=== PATIENT | male | born 1945 | race Hispanic/Latino ===

== ENCOUNTER 2018-08-29 05:48 | Day surgery (SDC) | payer OTHER, MEDICARE ==
[2018-08-29 06:58] LABS: Basophils % (Auto) 0.3 % (0.0-1.8); Eosinophils % (Auto) 0.4 % (0.0-4.3); Hematocrit 29.3 % (35.5-45.6); Hemoglobin 10.2 gm/dl (11.8-15.2); Lymphocytes # (Auto) 1.3 K/mm3 (1.2-5.4); Lymphocytes % (Auto) 40.6 % (13.4-35.0); Mean Corpuscular HGB Conc 35 % (32-34); Mean Corpuscular Volume 109 fl (84-94); Monocytes # (Auto) 0.4 K/mm3 (0.0-0.8); Monocytes % (Auto) 11.4 % (0.0-7.3)
[2018-08-29 06:59] LABS: Platelet Count 83 K/mm3 (140-440)
[2018-08-29] MEDS: NACL 0.9% 500 ML 500 ML IV SCH ×2 (06:59→08:30)
[2018-08-29 07:13] LABS: INR 0.94 (0.87-1.13)
[2018-08-29 07:21] LABS: BUN/Creatinine Ratio 25; Blood Urea Nitrogen 20 mg/dL (9-20); Calcium 9.2 mg/dL (8.4-10.2); Hemolysis Index 1
[2018-08-29] MEDS ORDERED: HEPARIN/NS 5000 UNIT/500ML(CATH LAB) 1,000 ML IR ONE (08:34)
[2018-08-29] MEDS ORDERED: VERSED ONE (08:34)
[2018-08-29] MEDS ORDERED: HEPARIN 10,000 UNITS/10 ML ONE (08:34)
[2018-08-29] MEDS ORDERED: SUBLIMAZE ONE (08:35)
[2018-08-29] MEDS ORDERED: NITROGLYCERIN SYRINGE 0 ML ONE (08:35)
[2018-08-29] MEDS: XYLOCAINE 2% INFILTRATI ONE ×2 (08:41→08:46)
[2018-08-29] MEDS: CALAN ONE ×2 (08:46→08:53)
--- NOTE | 2018-08-29 11:31 | Short Stay Summary ---
Short Stay Documentation Date of service: 08/29/18 - History H&P: obtained from office - Allergies and Medications Current Medications: Allergies No Known Allergies Allergy (Verified 08/29/18 11:27) Home Medications Medication Instructions Recorded Confirmed Last Taken Type Aspirin [Lo-Dose Aspirin EC] 81 mg PO DAILY 08/29/18 08/29/18 08/29/18 History 0639 Atenolol 50 mg PO DAILY 08/29/18 08/29/18 08/28/18 History Atorvastatin Calcium 80 mg PO DAILY 08/29/18 08/29/18 08/28/18 History Ramipril 5 mg PO DAILY 08/29/18 08/29/18 08/28/18 History Active Medications Sodium Chloride (Nacl 0.9% 500 Ml) 500 mls @ 50 mls/hr IV DIRECT GREGORIA Stop: 08/29/18 16:59 Last Admin: 08/29/18 08:30 Dose: 50 mls/hr Documented by: - Brief post op/procedure progress note Date of procedure: 08/29/18 Pre-op diagnosis: CAD Post-op diagnosis: same Procedure: [facility] - see dictated cath report Anesthesia: local Estimated blood loss: none Condition: stable - Disposition Condition at discharge: Good Disposition: DC-01 TO HOME OR SELFCARE - Discharge Diagnoses (1) CAD (coronary artery disease) Status: Chronic (2) Stented coronary artery Status: Chronic (3) Chest pain Status: Chronic Short Stay Discharge Plan Activity: advance as tolerated Diet: low fat, low cholesterol, low salt Wound: open to air, keep clean and dry, per your surgeon's advice Follow up with: PETTY ALVAREZ MD [Other] - 7 Days ALY GARCIA MD [Staff Physician] - 7 Days Forms: CardCath PCI D/C Instructions
[2018-08-29 11:53] VITALS: BP 106/52
--- NOTE | 2018-08-29 12:02 | Cardiac Catherization Report ---
CARDIAC CATHETERIZATION INDICATIONS FOR PROCEDURE: A 72-year-old gentleman with history of hypertension, known coronary artery disease, intervention of the RCA in 11/2005. As a part of the DOT, he has a stress nuclear imaging performed, which showed evidence of ischemia in the anteroapical and inferoapical area, which is new from 2016. The patient is not having any symptoms of chest pain or shortness of breath at this time. Because of for further evaluation of his abnormal nuclear imaging, he is scheduled for cardiac catheterization prior to his DOT physical clearance. DESCRIPTION OF PROCEDURE: The patient was brought to the catheterization laboratory in a fasting condition. The right wrist area and forearm were thoroughly cleansed with Betadine solution. The patient was evaluated for moderate sedation and was found to be appropriate candidate for moderate sedation, received IV Versed and fentanyl. Subsequently, sterile drapes were applied. Right wrist area was thoroughly cleansed with Betadine solution. Sterile drapes were applied. Local anesthesia was achieved using 2% Xylocaine. Right radial artery access was obtained using 21-gauge arterial puncture needle. Subsequently, a 5-Israeli sheath was inserted. The patient received 5 mg of intra-arterial verapamil and 3000 units of intravenous heparin. Subsequently, using 5-Israeli multipurpose catheter, angiograms of the right coronary artery were obtained in multiple views followed by using JL3.5 catheter for obtaining the angiograms of the left coronary artery and JR4 catheter was used to enter the left ventricle and left ventriculogram was performed using hand injection using the JR4 catheter. At the end of the procedure, catheter was removed over guidewire and sheath was removed and radial band was applied with good hemostasis. No untoward complications were noted. It is to be noted the patient received IV Versed and fentanyl and was monitored throughout the procedure hemodynamically with a pulse oximetry and also with EKG monitoring. The patient was started sedation at 8:34 a.m. and ended at 9:03 a.m. The patient, at the end of the procedure, was communicative, moving all the extremities and eating normally. No untoward complications were noted. Following findings were noted: HEMODYNAMICS: 1. Opening aortic pressure is 112/47, left ventricular pressure 133/26. No gradient across the aortic valve. Estimated ejection fraction was 55%. 2. Left ventriculogram was done in DAVID position shows normal sized left ventricle with normal contractility. End-diastolic and systolic volumes were normal; however, mitral regurgitation could not be evaluated because of limited amount of dye injected. 3. Right coronary artery, large, dominant vessel arises normally from right coronary cusp. Diffuse calcifications noted and there is a widely patent mid RCA stent. There is a diffuse disease throughout in the range of 10-30% throughout the vessel. 4. Left coronary artery arises normally from left coronary cusp. There are diffuse calcifications noted in the area of left main, LAD and circumflex. ____ Left main shows mild 10% lesions. LAD shows diffuse calcifications with 50% smooth lesion in the distal part just at the bifurcation of the anterior diagonal branch. This lesion is very smooth, 40-50%, and this is to be noted distal LAD is very tortuous and small caliber vessel. Otherwise, rest of the LAD shows only mild irregularities. Circumflex artery similarly shows 10-30% smooth lesions diffusely represented by a fairly large marginal branch. 5. Collaterals none. FINAL IMPRESSION: 1. Normal sized left ventricle with normal contractility. 2. Diffuse calcifications noted in the coronary system. 3. Widely patent mid right coronary artery noted. Rest of the right coronary artery and the left coronary artery shows only mild to moderate disease with no obstructive lesions. However, the patient has diffuse calcifications along mild to moderate diffuse disease. With the above angiographic pictures and normal LV function, the patient will be continued on aggressive risk factor modification and medical therapy. Findings were explained to the patient. The patient was transferred to the room in stable condition. Good hemostasis was achieved with manual pressure. No untoward complications were noted from moderate sedation. [facility]# [id number] ANNALISE/ZARA JOHNS
== END 2018-08-29 12:30 | disposition home or self-care (01) ==
LOC: CATHLABREC 05:48
PROVIDERS: ATTEND Internal Medicine
DX: I25.10 Atherosclerotic heart disease of native coronary artery without angina pectoris (principal); I10 Essential (primary) hypertension; E78.49 Other hyperlipidemia; F17.210 Nicotine dependence, cigarettes, uncomplicated; E78.00 Pure hypercholesterolemia, unspecified; K21.9 Gastro-esophageal reflux disease without esophagitis; M19.90 Unspecified osteoarthritis, unspecified site; Z86.2 Personal history of diseases of the blood and blood-forming organs and certain disorders involving the immune mechanism; Z98.890 Other specified postprocedural states; Z80.3 Family history of malignant neoplasm of breast; Z79.82 Long term (current) use of aspirin; Z98.61 Coronary angioplasty status; Z79.899 Other long term (current) drug therapy; Z90.49 Acquired absence of other specified parts of digestive tract; Z79.01 Long term (current) use of anticoagulants
CPT/HCPCS: 36415; 80048; 85025; 85610; 85730; 93005; 93010; 93458; 99156; 99157; C1894; J1644; J2250; J3010; J7040; Q9967

== ENCOUNTER 2019-07-29 02:05 | Emergency (ER) | payer OTHER, MEDICARE ==
[2019-07-29 02:20] VITALS: BP 102/37
--- NOTE | 2019-07-29 03:13 | XRay Report ---
CHEST 1 VIEW INDICATION: Chest Pain. COMPARISON: none FINDINGS: SUPPORT DEVICES: None. HEART / MEDIASTINUM: No significant abnormality. LUNGS / PLEURA: No significant pulmonary or pleural abnormality. No pneumothorax. ADDITIONAL FINDINGS: IMPRESSION: 1. No acute findings. Signer Name: Mike Moreno MD Signed: 07/29/2019 3:09 AM Workstation Name: [id number]
[2019-07-29 03:52] LABS: Hematocrit 23.1 % (35.5-45.6); Mean Corpuscular HGB Conc 35 % (32-34); Mean Corpuscular Volume 113 fl (84-94); Platelet Count 61 K/mm3 (140-440); Red Blood Count 2.04 M/mm3 (3.65-5.03)
[2019-07-29 04:15] LABS: BUN/Creatinine Ratio 15; Blood Urea Nitrogen 17 mg/dL (9-20); Calcium 9.6 mg/dL (8.4-10.2); Hemolysis Index 7
[2019-07-29 06:09] LABS: Band Neutrophils # (Manual) 1.3 K/mm3; Basophils % (Manual) 0 % (0.0-1.8); Eosinophils % (Manual) 0 % (0.0-4.3); Myelocytes # (Manual) 1.4 K/mm3; Total Cells Counted 100
[2019-07-29 06:10] LABS: Anisocytosis 1+; Macrocytosis 1+; Platelet Estimate Consistent w Auto
== END 2019-07-29 04:33 | disposition left against medical advice (07) ==
LOC: ED 02:05
DX: R42 Dizziness and giddiness (principal); Z53.21 Procedure and treatment not carried out due to patient leaving prior to being seen by health care provider
CPT/HCPCS: 36415; 71045; 80048; 84484; 85007; 85025; 93005; 93010

== ENCOUNTER 2019-07-29 10:35 | Observation (INO) | payer OTHER, MEDICARE ==
[2019-07-29] MEDS ORDERED: SODIUM CHLORIDE 0.9% 1000 ML 1,000 ML IV ONE (14:55)
[2019-07-29 15:52] LABS: Hematocrit 21.8 % (35.5-45.6); Hemoglobin 7.5 gm/dl (11.8-15.2); Mean Corpuscular HGB Conc 34 % (32-34); Red Blood Count 1.93 M/mm3 (3.65-5.03)
[2019-07-29 15:54] LABS: Mean Corpuscular Volume 113 fl (84-94); Platelet Count 58 K/mm3 (140-440)
[2019-07-29 16:05] LABS: Alanine Aminotransferase 8 units/L (7-56); Albumin 4.1 g/dL (3.9-5); BUN/Creatinine Ratio 18; Blood Urea Nitrogen 20 mg/dL (9-20); Calcium 9.3 mg/dL (8.4-10.2); Hemolysis Index 38
[2019-07-29 16:08] LABS: Bilirubin,Urine NEG (Negative); Blood,Urine NEG (Negative); Color,Urine Yellow (Yellow); Hyaline Casts,Urine 4 /LPF; Mucus,Urine FEW /HPF; Protein,Urine <15 mg/dL mg/dL (Negative); Urobilinogen,Urine < 2.0 mg/dL (<2.0); WBC,Urine < 1.0 /HPF (0.0-6.0)
[2019-07-29 16:14] LABS: Amphetamine Screen,Urine PRESUMPTIVE NEGATIVE; Benzodiazepines Screen,Urine PRESUMPTIVE NEGATIVE; Cannabinoid Screen,Urine PRESUMPTIVE NEGATIVE; Cocaine Screen,Urine PRESUMPTIVE NEGATIVE; Methadone Screen,Urine PRESUMPTIVE NEGATIVE; Opiate Screen,Urine PRESUMPTIVE NEGATIVE
[2019-07-29 16:15] LABS: Bilirubin,Direct < 0.2 mg/dL (0-0.2)
[2019-07-29 16:20] LABS: INR 1.06 (0.87-1.13)
[2019-07-29 16:21] LABS: Partial Thromboplastin Time 38.5 Sec. (24.2-36.6)
--- NOTE | 2019-07-29 16:43 | Emergency Department Report ---
ED General Adult HPI - General Chief complaint: Medical Clearance Stated complaint: CANNOT SLEEP Time Seen by Provider: 07/29/19 14:17 Source: patient Mode of arrival: Ambulatory Limitations: No Limitations - History of Present Illness Initial comments: 73-year-old male with history of CAD status post stents, hypertension presents to the ED with complaint of insomnia. Patient states he is unable to sleep. Patient was seen last night and eloped. Patient denies any sort of pain or discomfort. Patient states the last time this happened and he was diagnosed with an heart attack and stent placed. Patient currently denies any chest pain or shortness of breath. PCP: none [employer]: Mario -: days(s) (2) Consistency: constant Improves with: none Worsens with: none Associated Symptoms: denies other symptoms. denies: chest pain, cough, fever/chills, headaches, nausea/vomiting, shortness of breath Treatments Prior to Arrival: none - Related Data Home Medications Medication Instructions Recorded Confirmed Last Taken Aspirin [Lo-Dose Aspirin EC] 81 mg PO DAILY 08/29/18 08/29/18 08/29/18 0639 Atorvastatin Calcium 80 mg PO DAILY 08/29/18 08/29/18 08/28/18 Ramipril 5 mg PO DAILY 08/29/18 08/29/18 08/28/18 atenoloL [Atenolol] 50 mg PO DAILY 08/29/18 08/29/18 08/28/18 Allergies Allergy/AdvReac Type Severity Reaction Status Date / Time No Known Allergies Allergy Verified 08/29/18 11:27 ED Review of Systems ROS: Stated complaint: CANNOT SLEEP Other details as noted in HPI Comment: All other systems reviewed and negative Constitutional: denies: chills, fever Respiratory: denies: cough, shortness of breath Cardiovascular: denies: chest pain Gastrointestinal: denies: abdominal pain, vomiting, melena, hematochezia Neurological: denies: headache ED Past Medical Hx - Past Medical History Previous Medical History?: Yes Hx Hypertension: Yes Hx Heart Attack/AMI: No Hx GERD: Yes Hx Arthritis: Yes Hx HIV: No Additional medical history: CAD, high chol - Surgical History Past Surgical History?: Yes Hx Coronary Stent: Yes (1 cardiac stent 2005 in [facility]) Hx Appendectomy: Yes Additional Surgical History: knee surgery, nose surgery - Social History Smoking Status: Current Every Day Smoker Substance Use Type: None - Medications Home Medications: Home Medications Medication Instructions Recorded Confirmed Last Taken Type Aspirin [Lo-Dose Aspirin EC] 81 mg PO DAILY 08/29/18 08/29/18 08/29/18 History 0639 Atorvastatin Calcium 80 mg PO DAILY 08/29/18 08/29/18 08/28/18 History Ramipril 5 mg PO DAILY 08/29/18 08/29/18 08/28/18 History atenoloL [Atenolol] 50 mg PO DAILY 08/29/18 08/29/18 08/28/18 History ED Physical Exam - General Limitations: No Limitations General appearance: alert, in no apparent distress - Head Head exam: Present: atraumatic, normocephalic - Eye Eye exam: Present: normal appearance - ENT ENT exam: Present: mucous membranes moist - Neck Neck exam: Present: normal inspection - Respiratory Respiratory exam: Present: normal lung sounds bilaterally. Absent: respiratory distress - Cardiovascular Cardiovascular Exam: Present: regular rate, normal rhythm - GI/Abdominal GI/Abdominal exam: Present: soft. Absent: distended, tenderness - Rectal Rectal exam: Present: normal inspection, heme (-) stool - Extremities Exam Extremities exam: Present: normal inspection - Neurological Exam Neurological exam: Present: alert, oriented X3 - Psychiatric Psychiatric exam: Present: normal affect, normal mood - Skin Skin exam: Present: warm, dry, intact, normal color ED Course Vital Signs 07/29/19 07/29/19 07/29/19 10:47 14:30 17:13 Temperature 96.9 F L 97.9 F 98 F Pulse Rate 72 58 L 64 Respiratory 16 16 16 Rate Blood Pressure 92/46 112/60 114/56 [Right] O2 Sat by Pulse 100 98 100 Oximetry 07/29/19 18:26 Temperature 98 F Pulse Rate 66 Respiratory 18 Rate Blood Pressure 106/56 [Right] O2 Sat by Pulse 100 Oximetry ED Medical Decision Making - Lab Data Result diagrams: 07/29/19 15:22 07/29/19 15:18 - EKG Data -: EKG Interpreted by Or EKG shows normal: sinus rhythm, axis, intervals, QRS complexes, ST-T waves Rate: normal - EKG Data Interpretation: no acute changes - Radiology Data Radiology results: report reviewed, image reviewed - Medical Decision Making 73-year-old male presents to ED with complaint of insomnia. He reports the last time he experienced this, he was having a heart attack and underwent stent placement. Patient denies any pain, has no other complaints. HEENT troponin are normal. Chest x-ray done earlier this morning is normal as well. Labs reveal the patient is anemic and thrombocytopenic, with low sodium. Patient denies any history of anemia or thrombocytopenia. Denies alcohol abuse. Rectal exam was performed on patient by myself, as his stool guaiac is negative. Spoke with hospitalist, Dr. Garcia. Will admit for anemia, throbocytopenia, hyponatremia. - Differential Diagnosis infection, ACS, intoxication Critical care attestation.: If time is entered above; I have spent that time in minutes in the direct care of this critically ill patient, excluding procedure time. ED Disposition Clinical Impression: Hyponatremia, Anemia, Thrombocytopenia Disposition: OP ADMIT IP TO THIS HOSP Is pt being admited?: Yes Condition: Stable Time of Disposition: 16:43
[2019-07-29 17:00] LABS: Myelocytes # (Manual) 0.7 K/mm3; Total Cells Counted 100
[2019-07-29 17:01] LABS: Basophils % (Manual) 0 % (0.0-1.8); Platelet Estimate Appears Decreased
[2019-07-29 17:02] LABS: Anisocytosis 2+; Macrocytosis 1+
[2019-07-29] MEDS ORDERED: ACETAMINOPHEN 325 MG TAB PO PRN (23:31)
[2019-07-29] MEDS ORDERED: oxyCODONE /ACETAMINOPHEN 5-325MG TAB PO PRN (23:31)
[2019-07-29] MEDS ORDERED: METOCLOPRAMIDE 10 MG/2 ML INJ IV PRN (23:31)
[2019-07-29] MEDS ORDERED: ONDANSETRON 4 MG/2 ML INJ IV PRN (23:31)
[2019-07-29] MEDS ORDERED: HYDROmorphone 1 MG/1 ML INJ IV PRN (23:31)
[2019-07-29] MEDS ORDERED: SODIUM CHLORIDE 0.9% 500 ML 500 ML IV ONE (23:41)
[2019-07-29] MEDS ORDERED: FAMOTIDINE 20 MG/2 ML INJ IV SCH (23:45)
[2019-07-29] MEDS ORDERED: SODIUM CHLORIDE 0.9% 1000 ML 1,000 ML IV SCH (23:45)
--- NOTE | 2019-07-29 23:50 | Event Note ---
Date: 07/29/19 See history and physical in the reports Symptomatic anemia Hyponatremia Admitted in observation status
[2019-07-30 02:11] LABS: Iron 143 ug/dL (49-181); Total Iron Binding Capacity 207 mcg/dL (250-450)
[2019-07-30 02:12] LABS: % Iron Saturation 67.59 %
[2019-07-30 09:34] VITALS: BP 115/52
[2019-07-30] MEDS ORDERED: ASPIRIN EC 81 MG TAB PO SCH (10:00)
[2019-07-30] MEDS ORDERED: RAMIPRIL 5 MG PO SCH (10:00)
[2019-07-30] MEDS ORDERED: ATORVASTATIN CALCIUM 80 MG PO SCH (10:00)
[2019-07-30] MEDS ORDERED: FAMOTIDINE 20 MG TAB PO SCH (10:00)
[2019-07-30] MEDS ORDERED: atenoloL 50 MG TAB PO SCH (10:00)
[2019-07-30] MEDS ORDERED: LISINOPRIL 10 MG TAB PO SCH (10:00)
[2019-07-30 12:19] LABS: Hematocrit 24.2 % (35.5-45.6); Hemoglobin 8.2 gm/dl (11.8-15.2); Mean Corpuscular HGB Conc 34 % (32-34); Mean Corpuscular Volume 106 fl (84-94); Red Blood Count 2.29 M/mm3 (3.65-5.03)
[2019-07-30 12:20] LABS: Platelet Count 50 K/mm3 (140-440); Red Cell Distribution Width 24.5 % (13.2-15.2)
[2019-07-30 12:41] LABS: Alanine Aminotransferase 6 units/L (7-56); Albumin 3.7 g/dL (3.9-5); BUN/Creatinine Ratio 14; Blood Urea Nitrogen 15 mg/dL (9-20); Calcium 8.7 mg/dL (8.4-10.2); Hemolysis Index 5
--- NOTE | 2019-07-30 12:56 | Progress Note ---
Subjective Date of service: 07/30/19 Objective - Constitutional Vitals: Vital Signs - 12hr 07/30/19 07/30/19 07/30/19 02:45 04:11 04:26 Temperature 98.1 F 97.8 F 97.8 F Pulse Rate 57 L 58 L 65 Respiratory 20 18 18 Rate Blood Pressure 104/48 96/41 86/46 Blood Pressure [Right] O2 Sat by Pulse 99 97 99 Oximetry 07/30/19 07/30/19 07/30/19 04:56 05:26 05:56 Temperature 97.8 F 97.7 F 97.5 F L Pulse Rate 56 L 62 59 L Respiratory 18 18 18 Rate Blood Pressure 94/43 99/57 89/59 Blood Pressure [Right] O2 Sat by Pulse 99 97 100 Oximetry 07/30/19 07/30/19 07/30/19 06:26 06:56 07:57 Temperature 97.5 F L 97.7 F Pulse Rate 61 53 L 73 Respiratory 18 18 18 Rate Blood Pressure 99/54 89/41 102/58 Blood Pressure [Right] O2 Sat by Pulse 100 98 95 Oximetry 07/30/19 07/30/19 07/30/19 08:00 08:13 09:33 Temperature 97.5 F L Pulse Rate 74 58 L 44 L Respiratory 18 18 Rate Blood Pressure 112/64 115/52 Blood Pressure 102/58 [Right] O2 Sat by Pulse 99 Oximetry - Labs CBC & Chem 7: 07/30/19 11:58 07/30/19 11:58 Labs: Abnormal lab results 07/29/19 07/29/19 07/29/19 Range/Units 15:18 15:21 15:22 WBC 11.9 H (4.5-11.0) K/mm3 RBC 1.93 L (3.65-5.03) M/mm3 Hgb 7.5 L (11.8-15.2) gm/dl Hct 21.8 L (35.5-45.6) % MCV 113 H (84-94) fl MCH 39 H (28-32) pg RDW 19.0 H (13.2-15.2) % Plt Count 58 L (140-440) K/mm3 APTT 38.5 H (24.2-36.6) Sec. Sodium 129 L (137-145) mmol/L Chloride 94.9 L (98-107) mmol/L Carbon Dioxide 18 L (22-30) mmol/L TIBC (250-450) mcg/dL ALT (7-56) units/L Albumin (3.9-5) g/dL Crossmatch 07/30/19 07/30/19 07/30/19 Range/Units 00:04 00:04 00:12 WBC (4.5-11.0) K/mm3 RBC (3.65-5.03) M/mm3 Hgb (11.8-15.2) gm/dl Hct (35.5-45.6) % MCV (84-94) fl MCH (28-32) pg RDW (13.2-15.2) % Plt Count (140-440) K/mm3 APTT (24.2-36.6) Sec. Sodium (137-145) mmol/L Chloride (98-107) mmol/L Carbon Dioxide (22-30) mmol/L TIBC 216 L 207 L (250-450) mcg/dL ALT (7-56) units/L Albumin (3.9-5) g/dL Crossmatch See Detail 07/30/19 07/30/19 Range/Units 11:58 11:58 WBC 13.1 H (4.5-11.0) K/mm3 RBC 2.29 L (3.65-5.03) M/mm3 Hgb 8.2 L (11.8-15.2) gm/dl Hct 24.2 L (35.5-45.6) % MCV 106 H (84-94) fl MCH 36 H (28-32) pg RDW 24.5 H (13.2-15.2) % Plt Count 50 L (140-440) K/mm3 APTT (24.2-36.6) Sec. Sodium 131 L (137-145) mmol/L Chloride 97.6 L (98-107) mmol/L Carbon Dioxide 19 L (22-30) mmol/L TIBC (250-450) mcg/dL ALT 6 L (7-56) units/L Albumin 3.7 L (3.9-5) g/dL Crossmatch
[2019-07-30] MEDS ORDERED: NICOTINE 14 MG/24 HR PATCH TD SCH (13:00)
--- NOTE | 2019-07-30 13:05 | History and Physical Report ---
CHIEF COMPLAINT: 1. Generalized weakness. 2. Unable to sleep. 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 The patient is not taking care of him, following up with a physician because of him living in the truck. Comes in for generalized weakness and difficulty sleeping. The patient attributes his lack of sleep or unable to sleep to coronary artery disease. Denies any chest pain or shortness of breath. General weakness present. Shortness of breath on exertion present. PAST MEDICAL HISTORY: Significant for coronary artery disease, hypertension. Arthritis, hyperlipidemia. PAST SURGICAL HISTORY: Cardiac stent in 2005. Appendectomy, knee surgery and neurosurgery, rhinoplasty. SOCIAL HISTORY: Smokes about a pack a day to 3 packs a day. FAMILY HISTORY: Hypertension. CURRENT MEDICATIONS: Atorvastatin 80 mg once a day, ramipril 5 mg once a day, atenolol 50 mg once a day, aspirin 81 mg once a day. REVIEW OF SYSTEMS: Significant for generalized weakness and difficulty sleeping and shortness of breath on exertion. Otherwise, review of systems negative. A 14-point review of systems done. PHYSICAL EXAMINATION: GENERAL: Elderly male, cooperative during examination. VITAL SIGNS: Blood pressure is 89/41 which has improved to 112/64. Initial blood pressure was 92/46, temperature 96.9, pulse is 72, respiratory rate is 16. HEENT: Pale mucous membranes and pale conjunctivae. NECK: Supple, no lymphadenopathy, no thyromegaly. LUNGS: Clear to auscultation and percussion. Good air entry. CARDIOVASCULAR: S1, S2 heard. No gallop, no murmur, no rub. Apical impulse in left fifth intercostal space and midclavicular line. ABDOMEN: Soft and benign. No hepatosplenomegaly. No guarding, no rigidity. Hernial orifices are normal. EXTREMITIES: Good pedal pulses. No pedal edema. CENTRAL NERVOUS SYSTEM: Alert and oriented x 4, nonfocal exam. LABORATORY DATA: White count is 11,900, H and H is 7.5 and 31.8, platelet count is 58,000. Sodium is 129, BUN and creatinine is 20 and 1.1, liver function tests are normal. Urine normal. Drug screen negative. EKG shows normal sinus rhythm, heart rate of 60 per minute. No chest x-ray was done. ASSESSMENT AND PLAN: 1. Symptomatic anemia. The patient to be transfused 1 unit of blood. Anemia workup to be done. 2. Hyponatremia. IV normal saline for now. The patient is not on any hydrochlorothiazide. 3. Hyperlipidemia. Continue statins. We will decrease the statins to 40 mg because of the potential for myopathy. 4. Hypertension. Continue atenolol and ramipril. 5. Nicotine dependence. Continue Nicoderm patch. 6. Deep venous thrombosis prophylaxis, heparin 5000 q. 12. JOB# [id number] VSM/NTS
--- NOTE | 2019-07-30 14:02 | Discharge Summary ---
Providers - Providers Date of Admission: 07/29/19 16:44 Date of discharge: 07/30/19 Attending physician: DEBORAH SCOTT 07/30/19 08:42 Physical Therapy Evaluation and Treat [CONS] Routine Comment: Reason For Exam: weakness Primary care physician: DIRECTOR ON [employer] Hospitalization Condition: Stable Hospital course: Patient admitted for Anemia Debility and Hyponatremia Was given IV fluids and one unit of PRBC Patient has low Iron levels Also unsteady walking sec to Myopathy and Statins.Statins stopped. Discharge diagnosis Symptomatic Anemia Hyponatremia Myopathy sec to Statins. Stop Statins Ferrous sulfate 325 mg po qday F/u with pcp in one week Wants to sign AMA and go home at any cost. Counselled about dangers of early discharge. Has to stop driving. Disposition: DC- TO HOME OR SELFCARE Core Measure Documentation - Palliative Care Palliative Care/ Comfort Measures: Not Applicable - Core Measures Any of the following diagnoses?: none Exam - Constitutional Vitals: Temp Pulse Resp BP Pulse Ox 97.5 F L 44 L 18 115/52 99 07/30/19 08:00 07/30/19 09:33 07/30/19 08:13 07/30/19 09:33 07/30/19 08:13 General appearance: Present: no acute distress, well-nourished - EENT Eyes: Present: PERRL ENT: hearing intact, clear oral mucosa - Neck Neck: Present: supple, normal ROM - Respiratory Respiratory effort: normal Respiratory: bilateral: CTA - Cardiovascular Heart rate: 78 Rhythm: regular Heart Sounds: Present: S1 & S2. Absent: rub, click - Extremities Extremities: no ischemia, pulses intact, pulses symmetrical, No edema Peripheral Pulses: within normal limits - Abdominal General gastrointestinal: Present: soft, non-tender, non-distended, normal bowel sounds Male genitourinary: Present: normal - Integumentary Integumentary: Present: clear, warm, dry - Musculoskeletal Musculoskeletal: generalized weakness - Psychiatric Psychiatric: appropriate mood/affect, intact judgment & insight - Neurologic Neurologic: CNII-XII intact, moves all extremities - Allied Health Allied health notes reviewed: nursing, case management Plan Activity: no restrictions Weight Bearing Status: Weight Bear as Tolerated Diet: regular Follow up with: ILEANA GREENE MD [Primary Care Provider] - 3-5 Days ALLY ESCAMILLA MD [Staff Physician] - 7 Days
[2019-07-30 14:37] LABS: Anisocytosis 2+; Band Neutrophils # (Manual) 1.4 K/mm3; Basophils % (Manual) 0 % (0.0-1.8); Eosinophils % (Manual) 0 % (0.0-4.3); Myelocytes # (Manual) 1.2 K/mm3; Platelet Estimate Consistent w Auto; Total Cells Counted 100
== END 2019-07-30 14:25 | disposition home or self-care (01) ==
LOC: ED 10:35 → 2B-ACE 16:44
PROVIDERS: ADMIT Internal Medicine; ATTEND Internal Medicine
DX: D64.9 Anemia, unspecified (principal); D69.6 Thrombocytopenia, unspecified; E87.1 Hypo-osmolality and hyponatremia; E78.5 Hyperlipidemia, unspecified; F17.200 Nicotine dependence, unspecified, uncomplicated; I10 Essential (primary) hypertension; R53.1 Weakness; I25.10 Atherosclerotic heart disease of native coronary artery without angina pectoris; M19.90 Unspecified osteoarthritis, unspecified site; Z95.1 Presence of aortocoronary bypass graft; Z90.49 Acquired absence of other specified parts of digestive tract; Z98.890 Other specified postprocedural states; Z79.82 Long term (current) use of aspirin
CPT/HCPCS: 36415; 36430; 80048; 80053; 80076; 80307; 81001; 83036; 83550; 84484; 85007; 85025; 85610; 85730; 86850; 86900; 86901; 86920; 87116; 93005; 93010; 96374; 97161; 99284; 99406; A9270; G0378; J7030; J7040; P9016; 80320; G0480